=== PATIENT | female | born 1970 | race Caucasian/White ===

== ENCOUNTER 2018-01-25 09:20 | Emergency (ER) | payer OTHER ==
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
[2018-01-25] MEDS ORDERED: Sodium Chloride 0.9% 1000 ML 1,000 ML IV STA (10:20)
[2018-01-25] MEDS ORDERED: Phenergan 25 MG INJ IV ONE (10:20)
[2018-01-25] MEDS ORDERED: MORPHINE SULFATE 4 MG INJ IV ONE (10:20)
[2018-01-25] MEDS ORDERED: MORPHINE SULFATE 4 MG INJ ONE (10:42)
[2018-01-25] MEDS ORDERED: Sodium Chloride 0.9% 1000 ML 1,000 ML ONE (10:42)
[2018-01-25] MEDS ORDERED: Phenergan 25 MG INJ ONE (10:42)
[2018-01-25 10:50] LABS: BASOPHIL % 0.3 % (0.0-0.4); Basophil (Absolute #) 0.03 (0-0.4); Eosinophil % 1.8 % (0.00-5.0); Eosinophil (Absolute #) 0.16 (0-0.5); Granulocyte Absolute (ANC) 4.77 (1.4-6.9); Granulocytes % 53.1 % (36.0-66.0); Hematocrit 38.5 % (35-47); Hemoglobin 13.4 gm/dl (12.0-16.0); Lymphocyte (Absolute #) 3.39 (1.0-4.6); Lymphocytes % 37.8 % (24.0-44.0); Mean Cell Volume 95.1 fl (78-100); Mean Corpuscular Hgb Concent. 34.8 g/dl (32-36); Mean Platelet Volume 10.8 fl (6-9.5); Monocyte (Absolute #) 0.63 (0.0-1.3); Platelet Count 270 K/mm3 (150-450); Red Blood Count 4.05 M/mm3 (4.1-5.4); Red Cell Distribution Width 12.2 % (11.5-14.0)
[2018-01-25 11:08] LABS: ALBUMIN 4.6 g/dL (3.5-5.0); ALKALINE PHOSPHATASE 75 U/L (38-126); AMYLASE 99 U/L (30-110); ANION GAP 15.2 MEQ/L (5-15); BLOOD UREA NITROGEN 17 mg/dL (7-17); CHLORIDE 107 mmol/L (98-107); Calcium 10.1 mg/dL (8.4-10.2); Carbon Dioxide 23 mmol/L (22-30); Creatinine 1 0.62 mg/dL (0.52-1.04); Glucose 90 mg/dL (74-106); LIPASE 136 U/L (23-300); Potassium 4.2 mmol/L (3.5-5.1); SGOT/AST 27 U/L (14-36); SGPT/ALT 15 U/L (0-35); SODIUM 141 mmol/L (137-145); Total Protein 7.7 g/dL (6.3-8.2)
[2018-01-25 11:11] LABS: Amphetamine,Urine NEGATIVE (NEGATIVE); Barbiturate,Urine NEGATIVE (NEGATIVE); Benzodiazepine,Urine POSITIVE (NEGATIVE); Cocaine,Urine NEGATIVE (NEGATIVE); Methadone,Urine NEGATIVE (NEGATIVE); Opiate,Urine NEGATIVE (NEGATIVE); PCP,Urine NEGATIVE (NEGATIVE); THC,Urine NEGATIVE (NEGATIVE)
[2018-01-25 11:22] LABS: TROPONIN < 0.012 ng/mL (0.000-0.034)
[2018-01-25 11:26] LABS: Appearance CLEAR (CLEAR); Bacteria RARE /HPF (NEGATIVE); Bilirubin NEGATIVE (NEGATIVE); Blood 50 Ery/ul (0-5); Glucose NEGATIVE (NEGATIVE); Ketones NEGATIVE (NEGATIVE); Leukocyte Esterase NEGATIVE (NEGATIVE); Nitrite NEGATIVE (NEGATIVE); Protein,Urine Dip NEGATIVE (Negative); Specific Gravity 1.005 (1.005-1.025); Urobilinogen NORMAL mg/dL (0-1)
--- NOTE | 2018-01-25 12:11 | XRAY ---
Indication: Left abdominal pain. Comparison: Chest exam August 29, 2008. 2 views of the abdomen nonacute and nonobstructed with splenic calcified granuloma and pelvic phleboliths. Remaining solid organs unremarkable. Osseous structures intact with minimal degenerative changes and minimal dextroscoliosis centered at T12. Single frontal chest again demonstrates normal heart and lungs with incidental calcified granulomas. New finding old left 5th rib fracture. Impression: Negative abdomen with chronic findings. Stable nonacute one view chest with chronic findings.
[2018-01-25 12:17] VITALS: BP 115/74; PULSE 78
--- NOTE | 2018-01-25 12:21 | XRAY ---
Indication: Abdominal pain. Blood in stool. Multiple contiguous axial images obtained through the abdomen and pelvis without contrast as ordered. Comparison: None Lung bases are clear. Heart is not enlarged. Left infrahilar calcified granulomas. Noncontrasted stomach and bowel loops appear nonobstructed. Small medication/pill in the ascending colon. Appendix not seen. Calcified splenic granulomas and previous hysterectomy. No free fluid/air. Remaining liver, gallbladder, pancreas, adrenal glands, kidneys, ureters, bladder, and aorta appear unremarkable for noncontrast exam. Osseous structures intact with multilevel thoracolumbar Schmorl nodes, largest L3. Impression: 1. Evidence for old granulomatous disease. 2. Remaining CT abdomen/pelvis without contrast exam is negative. CT DI 23.68
[2018-01-25 12:22] VITALS: O2SAT 99
[2018-01-25] MEDS ORDERED: TORAdol 30 mg Injection ONE (13:17)
== END 2018-01-25 13:10 | disposition home or self-care (01) ==
LOC: ED 09:20
DX: K59.00 Constipation, unspecified (principal); R10.9 Unspecified abdominal pain; R11.2 Nausea with vomiting, unspecified; R19.7 Diarrhea, unspecified; Z79.899 Other long term (current) drug therapy; I10 Essential (primary) hypertension; J44.9 Chronic obstructive pulmonary disease, unspecified
CPT/HCPCS: 36000; 36415; 74022; 74176; 80053; 80307; 81000; 82150; 83605; 83690; 84484; 85025; 87040; 96360; 96374; 96375; 99284; J1885; J2270; J2550

== ENCOUNTER 2018-08-15 10:40 | Emergency (ER) | payer OTHER ==
[2018-08-15 10:58] VITALS: O2SAT 100
[2018-08-15] MEDS ORDERED: Zofran 4 MG/2 ML VIAL IV ONE (11:06)
[2018-08-15] MEDS ORDERED: Sodium Chloride 0.9% 1000 ML 1,000 ML IV STA (11:06)
[2018-08-15] MEDS ORDERED: BENADRYL 50 MG/ML IV ONE (11:06)
--- NOTE | 2018-08-15 11:12 | ERPHSYRPT ---
- History of Present Illness Time Seen by Provider: 08/15/18 11:00 Historian: patient Exam Limitations: clinical condition Patient Subjective Stated Complaint: Pain in left flank that radiates to the front abdomen and low back Triage Nursing Assessment: Pt c/o of pain in left flank that radiates to lower back and around front of the abdomen, stated that it began a week ago but got severe yesterday, BP 152/112, denies any trouble with bowels, pulses normal, bowel sounds heard, trouble urinating, appears to be very uncomfortable Physician History: PATIENT WITH A HISTORY OF COPD, COLITIS, DEPRESSION, COMPLAINS OF LEFT FLANK PAIN X 1 WEEK, RADIATES TO LEFT LOWER ABDOMEN. PAIN IS CHRONIC, PERSISTENT. DENIES NAUSEA, EMESIS, URINARY SYMPTOMS. Timing/Duration: week(s) Activities at Onset: none Quality: sharpness Abdominal Pain Onset Location: RLQ, LLQ, flank Pain Radiation: no radiation Severity of Pain-Max: severe Severity of Pain-Current: severe Modifying Factors: Improves With: nothing Associated Symptoms: denies symptoms Previous symptoms: other (HISTORY OF COLITIS) Allergies/Adverse Reactions: ketorolac [From Toradol] Allergy (Mild, Verified 08/15/18 10:58) tramadol Allergy (Mild, Verified 08/15/18 10:58) erythromycin base Allergy (Verified 08/15/18 10:59) Home Medications: Albuterol Sulfate [Ventolin Hfa] 90 mcg IN UD PRN 01/25/18 [History] Alprazolam 1 mg [Xanax 1 mg] 1 mg PO TID 01/25/18 [History] Amitriptyline HCl 10 mg [Elavil 10 mg] 100 mg PO HS 01/25/18 [History] Cyclobenzaprine HCl [Flexeril] 5 mg PO UD PRN 01/25/18 [History] Escitalopram Oxalate 10 mg [Lexapro 10 MG] 10 mg PO DAILY 01/25/18 [History] Furosemide 20 mg PO DAILY 01/25/18 [History] Metoprolol Tartrate 25 mg [Lopressor 25MG Tab] 100 mg PO DAILY 01/25/18 [ History] Potassium Chloride 10 meq PO DAILY 01/25/18 [History] Hx Tetanus, Diphtheria Vaccination/Date Given: No Hx Influenza Vaccination/Date Given: Yes Hx Pneumococcal Vaccination/Date Given: No - Review of Systems Constitutional: No Fever, No Chills Eyes: No Symptoms Ears, Nose, & Throat: No Symptoms Respiratory: No Symptoms, No Cough, No Dyspnea Cardiac: No Symptoms, No Chest Pain, No Edema, No Syncope Abdominal/Gastrointestinal: Abdominal Pain, Appetite Changes, No Nausea, No Vomiting, No Diarrhea Genitourinary Symptoms: No Dysuria Musculoskeletal: No Symptoms, No Back Pain, No Neck Pain Skin: No Rash Neurological: No Dizziness, No Focal Weakness, No Sensory Changes Psychological: No Symptoms Endocrine: No Symptoms All Other Systems: Reviewed and Negative - Past Medical History Pertinent Past Medical History: Yes Cardiac History: Hypertension Respiratory History: Asthma, COPD GI Medical History: Colitis Psycho-Social History: Anxiety, Depression - Past Surgical History Past Surgical History: Yes Female Surgical History: Hysterectomy - Social History Smoking Status: Current some day smoker How long have you smoked: 38 years Exposure to second hand smoke: No Drug Use: marijuana Patient Lives Alone: No - Female History Hx Now: No (hysterectomy) - Nursing Vital Signs Nursing Vital Signs: Initial Vital Signs Temperature 98.2 F 08/15/18 10:45 Pulse Rate 82 08/15/18 10:45 Blood Pressure 152/112 08/15/18 10:45 O2 Sat by Pulse Oximetry 100 08/15/18 10:45 Pain Scale Pain Intensity 10 - Physical Exam General Appearance: mild distress Eye Exam: PERRL/EOMI Ears, Nose, Throat Exam: normal ENT inspection Neck Exam: normal inspection Respiratory Exam: normal breath sounds Cardiovascular Exam: regular rate/rhythm Gastrointestinal/Abdomen Exam: soft, normal bowel sounds, tenderness (LLQ TENDERNESS, LEFT FLANK TENDERNESS) Back Exam: normal inspection, normal range of motion, CVA tenderness Extremity Exam: normal inspection Neurologic Exam: alert, oriented x 3 SpO2 Interpretation: normal SpO2: 100 Oxygen Delivery: Room Air - CT Exams Abdomen/Pelvis CT Interpretation: Discussed w/radiologist (INCIDENTAL BILATERAL RENAL CYSTS NOT SEEN OF PREVIOUS NONCONTRAST EXAM OTHERWISE NEGATIVE) Ordered Tests: Active Orders 24 hr Category Date Time Status IV Insertion STAT Care 08/15/18 11:06 Active ABDOMEN AND PELVIS W CONTRAST [CT] Stat Exams 08/15/18 11:07 Completed AMYLASE Stat Lab 08/15/18 11:06 Completed BMP Stat Lab 08/15/18 11:06 Completed CBC W DIFF Stat Lab 08/15/18 11:06 Completed CULTURE,URINE Stat Lab 08/15/18 11:25 Received LIPASE Stat Lab 08/15/18 11:06 Completed UA W/RFX UR CULTURE Stat Lab 08/15/18 11:25 Completed Urine Triage Profile Stat Lab 08/15/18 Completed Medication Summary Discontinued Medications Generic Name Dose Route Start Last Admin Trade Name Bobo PRN Reason Stop Dose Admin Diphenhydramine HCl 25 mg 08/15/18 11:06 08/15/18 11:45 Benadryl 50 Mg/Ml IV 08/15/18 11:07 25 mg STAT ONE Administration Diphenhydramine HCl Confirm 08/15/18 11:39 Benadryl 50 Mg/Ml Administered 08/15/18 11:40 Dose 50 mg .ROUTE .STK-MED ONE Hydromorphone HCl 1 mg 08/15/18 11:30 08/15/18 11:46 Hydromorphone 1 Mg/Ml Ampule IV 08/15/18 11:31 1 mg STAT ONE Administration Hydromorphone HCl Confirm 08/15/18 11:39 Hydromorphone 1 Mg/Ml Ampule Administered 08/15/18 11:40 Dose 1 mg .ROUTE .STK-MED ONE Sodium Chloride 1,000 mls @ 999 mls/hr 08/15/18 11:06 08/15/18 12:56 Sodium Chloride 0.9% 1000 Ml IV 08/15/18 12:06 Infused .Q1H1M STA Infusion Sodium Chloride Confirm 08/15/18 11:39 Sodium Chloride 0.9% 1000 Ml Administered 08/15/18 11:40 Dose 1,000 mls @ ud .ROUTE .STK-MED ONE Ondansetron HCl 4 mg 08/15/18 11:06 08/15/18 11:46 Zofran 4 Mg/2 Ml Vial IV 08/15/18 11:07 4 mg STAT ONE Administration Ondansetron HCl Confirm 08/15/18 11:39 Zofran 4 Mg/2 Ml Vial Administered 08/15/18 11:40 Dose 4 mg .ROUTE .STK-MED ONE Lab/Rad Data: Laboratory Result Diagrams 08/15/18 11:06 08/15/18 11:06 Laboratory Results 08/15/18 08/15/18 08/15/18 Range/Units Unknown 11:25 11:06 WBC (4.0-10.5) K/mm3 RBC (4.1-5.4) M/mm3 Hgb (12.0-16.0) gm/dl Hct (35-47) % MCV (78-100) fl MCH (26-32) pg MCHC (32-36) g/dl RDW (11.5-14.0) % Plt Count (150-450) K/mm3 MPV (6-9.5) fl Gran % (36.0-66.0) % Eos # (Auto) (0-0.5) Absolute Lymphs (auto) (1.0-4.6) Absolute Monos (auto) (0.0-1.3) Lymphocytes % (24.0-44.0) % Monocytes % (0.0-12.0) % Eosinophils % (0.00-5.0) % Basophils % (0.0-0.4) % Absolute Granulocytes (1.4-6.9) Basophils # (0-0.4) Sodium 140 (137-145) mmol/L Potassium 4.0 (3.5-5.1) mmol/L Chloride 109 H (98-107) mmol/L Carbon Dioxide 25 (22-30) mmol/L Anion Gap 10.1 (5-15) MEQ/L BUN 18 H (7-17) mg/dL Creatinine 0.89 (0.52-1.04) mg/dL Estimated GFR > 60.0 ML/MIN Glucose 114 H (74-106) mg/dL Calcium 9.0 (8.4-10.2) mg/dL Amylase 88 (30-110) U/L Lipase 70 (23-300) U/L Urine Color YELLOW (YELLOW) Urine Appearance SLIGHTLY CLOUDY (CLEAR) Urine pH 5.0 (5-6) Ur Specific [place] 1.017 (1.005-1.025) Urine Protein 30 (Negative) Urine Ketones NEGATIVE (NEGATIVE) Urine Blood MODERATE (0-5) Rodney/ul Urine Nitrite NEGATIVE (NEGATIVE) Urine Bilirubin NEGATIVE (NEGATIVE) Urine Urobilinogen NEGATIVE (0-1) mg/dL Ur Leukocyte Esterase NEGATIVE (NEGATIVE) Urine WBC (Auto) 3-5 (0-5) /HPF Urine RBC (Auto) >101 (0-2) /HPF U Epithel Cells (Auto) RARE (FEW) /HPF Urine Bacteria (Auto) RARE (NEGATIVE) /HPF Urine Mucus (Auto) SLIGHT (NEGATIVE) /HPF Urine Culture Reflexed YES (NO) Urine Glucose NEGATIVE (NEGATIVE) mg/dL Urine Opiates Level NEGATIVE (NEGATIVE) Ur Methadone NEGATIVE (NEGATIVE) Urine Barbiturates NEGATIVE (NEGATIVE) Ur Phencyclidine (PCP) NEGATIVE (NEGATIVE) Urine Amphetamine NEGATIVE (NEGATIVE) U Benzodiazepine Level POSITIVE (NEGATIVE) Urine Cocaine NEGATIVE (NEGATIVE) Urine Marijuana (THC) POSITIVE (NEGATIVE) 08/15/18 Range/Units 11:06 WBC 9.0 (4.0-10.5) K/mm3 RBC 3.22 L (4.1-5.4) M/mm3 Hgb 10.6 L (12.0-16.0) gm/dl Hct 31.3 L (35-47) % MCV 97.2 (78-100) fl MCH 32.9 H (26-32) pg MCHC 33.9 (32-36) g/dl RDW 13.2 (11.5-14.0) % Plt Count 278 (150-450) K/mm3 MPV 10.5 H (6-9.5) fl Gran % 64.2 (36.0-66.0) % Eos # (Auto) 0.26 (0-0.5) Absolute Lymphs (auto) 2.46 (1.0-4.6) Absolute Monos (auto) 0.48 (0.0-1.3) Lymphocytes % 27.2 (24.0-44.0) % Monocytes % 5.3 (0.0-12.0) % Eosinophils % 2.9 (0.00-5.0) % Basophils % 0.4 (0.0-0.4) % Absolute Granulocytes 5.80 (1.4-6.9) Basophils # 0.04 (0-0.4) Sodium (137-145) mmol/L Potassium (3.5-5.1) mmol/L Chloride (98-107) mmol/L Carbon Dioxide (22-30) mmol/L Anion Gap (5-15) MEQ/L BUN (7-17) mg/dL Creatinine (0.52-1.04) mg/dL Estimated GFR ML/MIN Glucose (74-106) mg/dL Calcium (8.4-10.2) mg/dL Amylase (30-110) U/L Lipase (23-300) U/L Urine Color (YELLOW) Urine Appearance (CLEAR) Urine pH (5-6) Ur Specific [place] (1.005-1.025) Urine Protein (Negative) Urine Ketones (NEGATIVE) Urine Blood (0-5) Rodney/ul Urine Nitrite (NEGATIVE) Urine Bilirubin (NEGATIVE) Urine Urobilinogen (0-1) mg/dL Ur Leukocyte Esterase (NEGATIVE) Urine WBC (Auto) (0-5) /HPF Urine RBC (Auto) (0-2) /HPF U Epithel Cells (Auto) (FEW) /HPF Urine Bacteria (Auto) (NEGATIVE) /HPF Urine Mucus (Auto) (NEGATIVE) /HPF Urine Culture Reflexed (NO) Urine Glucose (NEGATIVE) mg/dL Urine Opiates Level (NEGATIVE) Ur Methadone (NEGATIVE) Urine Barbiturates (NEGATIVE) Ur Phencyclidine (PCP) (NEGATIVE) Urine Amphetamine (NEGATIVE) U Benzodiazepine Level (NEGATIVE) Urine Cocaine (NEGATIVE) Urine Marijuana (THC) (NEGATIVE) - Progress Progress Note: 08/15/18 11:12 IV NORMAL SALINE 1 LITER/HR, BENADRYL 25MG, ZOFRAN 4MG, DILAUDID 1MG IV Counseled pt/family regarding: lab results, diagnosis, need for follow-up, rad results - Departure Time of Disposition: 13:18 Departure Disposition: Home Clinical Impression: RENAL COLIC, BILATERAL RENAL CYSTS Condition: Stable Critical Care Time: No Referrals: ELENA FRIAS, CARE AIDE [Primary Care Provider] - Additional Instructions: STRAIN ALL URINE WITH STRAINER. ZOFRAN 4MG EVERY 6 HOURS NEEDED FOR NAUSEA. PERCOGESIC EVERY 4-6 HOURS FOR PAIN NEEDED. CONSULT YOUR PRIMARY CARE PROVIDER FOR FOLLOWUP AND REFERRAL FOR COLONOSCOPY. Prescriptions: Ondansetron ODT 4 MG [Zofran Odt 4 mg] 4 mg PO Q6H PRN PRN #10 tab.rapdis PRN Reason: Nausea Acetaminophen/Diphenhydramine [Percogesic Extra Str Caplet] 1 each PO Q4-6HPRN PRN #20 tablet PRN Reason: Pain
[2018-08-15] MEDS ORDERED: Hydromorphone 1 mg/ml Ampule IV ONE (11:30)
[2018-08-15] MEDS ORDERED: Hydromorphone 1 mg/ml Ampule ONE (11:39)
[2018-08-15] MEDS ORDERED: Zofran 4 MG/2 ML VIAL ONE (11:39)
[2018-08-15] MEDS ORDERED: Sodium Chloride 0.9% 1000 ML 1,000 ML ONE (11:39)
[2018-08-15] MEDS ORDERED: BENADRYL 50 MG/ML ONE (11:39)
[2018-08-15 11:50] LABS: BASOPHIL % 0.4 % (0.0-0.4); Basophil (Absolute #) 0.04 (0-0.4); Eosinophil % 2.9 % (0.00-5.0); Eosinophil (Absolute #) 0.26 (0-0.5); Granulocytes % 64.2 % (36.0-66.0); Hematocrit 31.3 % (35-47); Hemoglobin 10.6 gm/dl (12.0-16.0); Lymphocyte (Absolute #) 2.46 (1.0-4.6); Lymphocytes % 27.2 % (24.0-44.0); Mean Cell Volume 97.2 fl (78-100); Mean Corpuscular Hemoglobin 32.9 pg (26-32); Mean Corpuscular Hgb Concent. 33.9 g/dl (32-36); Mean Platelet Volume 10.5 fl (6-9.5); Monocyte (Absolute #) 0.48 (0.0-1.3); Monocytes % 5.3 % (0.0-12.0); Platelet Count 278 K/mm3 (150-450); Red Blood Count 3.22 M/mm3 (4.1-5.4); Red Cell Distribution Width 13.2 % (11.5-14.0)
[2018-08-15 12:05] LABS: Appearance SLIGHTLY CLOUDY (CLEAR); Bilirubin NEGATIVE (NEGATIVE); Blood MODERATE Ery/ul (0-5); Glucose NEGATIVE (NEGATIVE); Ketones NEGATIVE (NEGATIVE); Leukocyte Esterase NEGATIVE (NEGATIVE); Nitrite NEGATIVE (NEGATIVE); Protein,Urine Dip 30 (Negative); Specific Gravity 1.017 (1.005-1.025); Urobilinogen NEGATIVE mg/dL (0-1)
[2018-08-15 12:10] LABS: AMYLASE 88 U/L (30-110); ANION GAP 10.1 MEQ/L (5-15); BLOOD UREA NITROGEN 18 mg/dL (7-17); CHLORIDE 109 mmol/L (98-107); Carbon Dioxide 25 mmol/L (22-30); Creatinine 1 0.89 mg/dL (0.52-1.04); Glucose 114 mg/dL (74-106); LIPASE 70 U/L (23-300); SODIUM 140 mmol/L (137-145)
[2018-08-15 12:11] LABS: Amphetamine,Urine NEGATIVE (NEGATIVE); Barbiturate,Urine NEGATIVE (NEGATIVE); Benzodiazepine,Urine POSITIVE (NEGATIVE); Cocaine,Urine NEGATIVE (NEGATIVE); Methadone,Urine NEGATIVE (NEGATIVE); Opiate,Urine NEGATIVE (NEGATIVE); THC,Urine POSITIVE (NEGATIVE)
[2018-08-15 12:26] LABS: PCP,Urine NEGATIVE (NEGATIVE)
--- NOTE | 2018-08-15 12:44 | XRAY ---
Indication: Abdomen/pelvic pain. Bloating, nausea, and diarrhea. Difficulty urinating. History colitis and diverticulitis. Multiple contiguous axial images obtained through the abdomen and pelvis using 80 cc Isovue 370 contrast only. Comparison: January 25, 2018. Lung bases demonstrate stable left base calcified granuloma. No infiltrate or effusion. Heart is not enlarged. Noncontrasted stomach and bowel loops appear nonobstructed. Appendix not seen. There is now mild diffuse scattered colonic fecal debris. Stable calcified splenic granulomas and hysterectomy. There are a few bilateral renal cysts, largest in the left lower pole measuring 1.5 cm not seen on previous noncontrasted exam. No free fluid/air. Remaining liver, gallbladder, pancreas, spleen, adrenal glands, kidneys, ureters, bladder, and aorta appear unremarkable. No pathologic retroperitoneal lymphadenopathy. Osseous structures intact again with multilevel thoracolumbar Schmorl nodes. No ventral or inguinal hernias. Impression: 1. New fecal stasis without obstruction. 2. Incidental bilateral renal cysts not seen on previous noncontrast exam. 3. Again evidence for old granulomatous disease. 4. Remaining CT abdomen/pelvis with contrast exam is negative. CT DI 27.96
[2018-08-15 13:33] VITALS: BP 141/92; PULSE 88
== END 2018-08-15 13:33 | disposition home or self-care (01) ==
LOC: ED 10:40
DX: N23 Unspecified renal colic (principal); N28.1 Cyst of kidney, acquired; Z79.899 Other long term (current) drug therapy
CPT/HCPCS: 36000; 36415; 74177; 80048; 80307; 81001; 82150; 83690; 85025; 87086; 96360; 96374; 96375; 99284; J1170; J1200; J2405

== ENCOUNTER 2018-08-16 11:32 | Emergency (ER) | payer OTHER ==
--- NOTE | 2018-08-16 11:58 | ERPHSYRPT ---
- History of Present Illness Time Seen by Provider: 08/16/18 11:51 Historian: patient Patient Subjective Stated Complaint: to er c/o pain to left lower quad pain going across abd. 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 pt seen in er yesterday and dx with possible kidney stone and renal colic Triage Nursing Assessment: to er c/o pain to lower abd x 24 hour pt states pain worse over night pt arrives bent over in pain pt pale/w/d resp easy a@ox3 bs+x4 Physician History: 48 y/o white female presents with left upper quadrant abd and left flank pain. pt seen in this ED yesterday and underwent a thorough evaluation including a ct abd/pelvis. results of ct scan revealed no acute process, no renal or ureteral stones. pt can take ibuprofen Activities at Onset: none Abdominal Pain Onset Location: LUQ, flank (left) Pain Radiation: no radiation Severity of Pain-Max: moderate Severity of Pain-Current: mild Modifying Factors: Improves With: nothing Associated Symptoms: back (left), No chest pain, No diaphoresis, No diarrhea, No headache, No loss of appetite, No nausea, No vomiting, No weakness Previous symptoms: same symptoms as today, recently seen, recently treated Allergies/Adverse Reactions: ketorolac [From Toradol] Allergy (Mild, Verified 08/15/18 10:58) tramadol Allergy (Mild, Verified 08/15/18 10:58) erythromycin base Allergy (Verified 08/15/18 10:59) Home Medications: Albuterol Sulfate [Ventolin Hfa] 90 mcg IN UD PRN 01/25/18 [History] Alprazolam 1 mg [Xanax 1 mg] 1 mg PO TID 01/25/18 [History] Amitriptyline HCl 10 mg [Elavil 10 mg] 100 mg PO HS 01/25/18 [History] Cyclobenzaprine HCl [Flexeril] 5 mg PO UD PRN 01/25/18 [History] Escitalopram Oxalate 10 mg [Lexapro 10 MG] 10 mg PO DAILY 01/25/18 [History] Furosemide 20 mg PO DAILY 01/25/18 [History] Metoprolol Tartrate 25 mg [Lopressor 25MG Tab] 100 mg PO DAILY 01/25/18 [ History] Potassium Chloride 10 meq PO DAILY 01/25/18 [History] Hx Tetanus, Diphtheria Vaccination/Date Given: No Hx Influenza Vaccination/Date Given: Yes Hx Pneumococcal Vaccination/Date Given: No - Review of Systems Constitutional: No Symptoms, No Fever Eyes: No Symptoms Ears, Nose, & Throat: No Symptoms Respiratory: No Symptoms Cardiac: No Symptoms Abdominal/Gastrointestinal: Abdominal Pain, No Nausea, No Vomiting, No Diarrhea Genitourinary Symptoms: No Symptoms, No Dysuria, No Frequency, No Hematuria Musculoskeletal: Back Pain (left) Skin: No Symptoms Neurological: No Symptoms Psychological: No Symptoms Endocrine: No Symptoms Hematologic/Lymphatic: No Symptoms Immunological/Allergic: No Symptoms All Other Systems: Reviewed and Negative - Past Medical History Pertinent Past Medical History: Yes Cardiac History: Hypertension Respiratory History: Asthma, COPD GI Medical History: Colitis Psycho-Social History: Anxiety, Depression - Past Surgical History Past Surgical History: Yes Female Surgical History: Hysterectomy - Social History Smoking Status: Current some day smoker How long have you smoked: 38 years Exposure to second hand smoke: No Drug Use: marijuana Patient Lives Alone: No - Female History Hx Now: No - Nursing Vital Signs Nursing Vital Signs: Initial Vital Signs Temperature 97.6 F 08/16/18 11:36 Pulse Rate 83 08/16/18 11:36 Respiratory Rate 16 08/16/18 11:36 Blood Pressure 177/103 08/16/18 11:36 O2 Sat by Pulse Oximetry 100 08/16/18 11:36 Pain Scale Pain Intensity 10 - Physical Exam General Appearance: mild distress, alert, anxiety Eye Exam: PERRL/EOMI, eyes nml inspection Ears, Nose, Throat Exam: normal ENT inspection, pharynx normal, moist mucous membranes Neck Exam: normal inspection, non-tender, supple, full range of motion Respiratory Exam: normal breath sounds, lungs clear, airway intact, No chest tenderness, No respiratory distress, No accessory muscle use, No rhonchi, No wheezing, No stridor Cardiovascular Exam: regular rate/rhythm, normal heart sounds, normal peripheral pulses Gastrointestinal/Abdomen Exam: soft, normal bowel sounds, tenderness (left upper quadrant), No guarding, No rebound Pelvic Exam: not done Rectal Exam: not done Back Exam: normal inspection, normal range of motion, CVA tenderness (left), No vertebral tenderness Extremity Exam: normal inspection, normal range of motion, pelvis stable Neurologic Exam: alert, oriented x 3, cooperative, pottery striper II-XII nml as tested Skin Exam: normal color, warm, dry Lymphatic Exam: No adenopathy SpO2 Interpretation: normal SpO2: 100 Oxygen Delivery: Room Air - Course Nursing assessment & vital signs reviewed: Yes Ordered Tests: Active Orders 24 hr Category Date Time Status AMYLASE Stat Lab 08/16/18 12:35 Completed CBC W DIFF Stat Lab 08/16/18 12:35 Completed CMP Stat Lab 08/16/18 12:35 Completed CULTURE,URINE Stat Lab 08/16/18 12:40 Received LIPASE Stat Lab 08/16/18 12:35 Completed Lactic Acid Stat Lab 08/16/18 12:39 Completed UA W/RFX UR CULTURE Stat Lab 08/16/18 12:40 Completed Medication Summary Discontinued Medications Generic Name Dose Route Start Last Admin Trade Name Freq PRN Reason Stop Dose Admin Hydrocodone Bitart/Acetaminophen 1 tab 08/16/18 12:43 08/16/18 12:45 Howard 5/325 Mg PO 08/16/18 12:44 1 tab STAT ONE Administration Hydrocodone Bitart/Acetaminophen Confirm 08/16/18 12:43 Howard 5/325 Mg Administered 08/16/18 12:44 Dose 1 tab .ROUTE .STK-MED ONE Lab/Rad Data: Laboratory Result Diagrams 08/16/18 12:35 08/16/18 12:35 Laboratory Results 08/16/18 08/16/18 08/16/18 Range/Units 12:40 12:39 12:35 WBC (4.0-10.5) K/mm3 RBC (4.1-5.4) M/mm3 Hgb (12.0-16.0) gm/dl Hct (35-47) % MCV (78-100) fl MCH (26-32) pg MCHC (32-36) g/dl RDW (11.5-14.0) % Plt Count (150-450) K/mm3 MPV (6-9.5) fl Gran % (36.0-66.0) % Eos # (Auto) (0-0.5) Absolute Lymphs (auto) (1.0-4.6) Absolute Monos (auto) (0.0-1.3) Lymphocytes % (24.0-44.0) % Monocytes % (0.0-12.0) % Eosinophils % (0.00-5.0) % Basophils % (0.0-0.4) % Absolute Granulocytes (1.4-6.9) Basophils # (0-0.4) Sodium 140 (137-145) mmol/L Potassium 4.1 (3.5-5.1) mmol/L Chloride 109 H (98-107) mmol/L Carbon Dioxide 23 (22-30) mmol/L Anion Gap 11.4 (5-15) MEQ/L BUN 14 (7-17) mg/dL Creatinine 0.79 (0.52-1.04) mg/dL Estimated GFR > 60.0 ML/MIN Glucose 91 (74-106) mg/dL Lactic Acid 1.2 (0.4-2.0) Calcium 9.4 (8.4-10.2) mg/dL Total Bilirubin 0.20 (0.2-1.3) mg/dL AST 16 (14-36) U/L ALT 13 (0-35) U/L Alkaline Phosphatase 65 (38-126) U/L Serum Total Protein 6.5 (6.3-8.2) g/dL Albumin 3.8 (3.5-5.0) g/dL Amylase 118 H (30-110) U/L Lipase 197 (23-300) U/L Urine Color YELLOW (YELLOW) Urine Appearance CLEAR (CLEAR) Urine pH 6.0 (5-6) Ur Specific [place] 17 (1.005-1.025) Urine Protein NEGATIVE (Negative) Urine Ketones NEGATIVE (NEGATIVE) Urine Blood MODERATE (0-5) Rodney/ul Urine Nitrite NEGATIVE (NEGATIVE) Urine Bilirubin NEGATIVE (NEGATIVE) Urine Urobilinogen NORMAL (0-1) mg/dL Ur Leukocyte Esterase NEGATIVE (NEGATIVE) Urine WBC (Auto) 3-5 (0-5) /HPF Urine RBC (Auto) >101 (0-2) /HPF U Epithel Cells (Auto) NONE (FEW) /HPF Urine Bacteria (Auto) RARE (NEGATIVE) /HPF Urine Mucus (Auto) SLIGHT (NEGATIVE) /HPF Urine Culture Reflexed YES (NO) Urine Glucose NEGATIVE (NEGATIVE) mg/dL 08/16/18 Range/Units 12:35 WBC 7.2 (4.0-10.5) K/mm3 RBC 3.33 L (4.1-5.4) M/mm3 Hgb 10.9 L (12.0-16.0) gm/dl Hct 32.3 L (35-47) % MCV 97.0 (78-100) fl MCH 32.7 H (26-32) pg MCHC 33.7 (32-36) g/dl RDW 13.2 (11.5-14.0) % Plt Count 298 (150-450) K/mm3 MPV 10.2 H (6-9.5) fl Gran % 53.3 (36.0-66.0) % Eos # (Auto) 0.19 (0-0.5) Absolute Lymphs (auto) 2.72 (1.0-4.6) Absolute Monos (auto) 0.40 (0.0-1.3) Lymphocytes % 37.6 (24.0-44.0) % Monocytes % 5.5 (0.0-12.0) % Eosinophils % 2.6 (0.00-5.0) % Basophils % 1.0 (0.0-0.4) % Absolute Granulocytes 3.86 (1.4-6.9) Basophils # 0.07 (0-0.4) Sodium (137-145) mmol/L Potassium (3.5-5.1) mmol/L Chloride (98-107) mmol/L Carbon Dioxide (22-30) mmol/L Anion Gap (5-15) MEQ/L BUN (7-17) mg/dL Creatinine (0.52-1.04) mg/dL Estimated GFR ML/MIN Glucose (74-106) mg/dL Lactic Acid (0.4-2.0) Calcium (8.4-10.2) mg/dL Total Bilirubin (0.2-1.3) mg/dL AST (14-36) U/L ALT (0-35) U/L Alkaline Phosphatase (38-126) U/L Serum Total Protein (6.3-8.2) g/dL Albumin (3.5-5.0) g/dL Amylase (30-110) U/L Lipase (23-300) U/L Urine Color (YELLOW) Urine Appearance (CLEAR) Urine pH (5-6) Ur Specific [place] (1.005-1.025) Urine Protein (Negative) Urine Ketones (NEGATIVE) Urine Blood (0-5) Rodney/ul Urine Nitrite (NEGATIVE) Urine Bilirubin (NEGATIVE) Urine Urobilinogen (0-1) mg/dL Ur Leukocyte Esterase (NEGATIVE) Urine WBC (Auto) (0-5) /HPF Urine RBC (Auto) (0-2) /HPF U Epithel Cells (Auto) (FEW) /HPF Urine Bacteria (Auto) (NEGATIVE) /HPF Urine Mucus (Auto) (NEGATIVE) /HPF Urine Culture Reflexed (NO) Urine Glucose (NEGATIVE) mg/dL - Progress Progress: improved, pain not gone completely Counseled pt/family regarding: lab results, diagnosis, need for follow-up - Departure Time of Disposition: 13:51 Departure Disposition: Home Clinical Impression: Left flank pain, Hematuria Condition: Stable Critical Care Time: No Referrals: ELENA FRIAS, HEAD HOST/HOSTESS [Primary Care Provider] - Additional Instructions: drink plenty of fluids. add ibuprofen for pain. follow up with urologist and primary doctor for further management Prescriptions: Hydrocodone/APAP 5/325 [Howard 5/325 mg] 1 each PO Q8H PRN PRN #6 tablet MDD 3 PRN Reason: Pain
[2018-08-16 12:43] LABS: Basophil (Absolute #) 0.07 (0-0.4); Eosinophil % 2.6 % (0.00-5.0); Eosinophil (Absolute #) 0.19 (0-0.5); Granulocyte Absolute (ANC) 3.86 (1.4-6.9); Granulocytes % 53.3 % (36.0-66.0); Hematocrit 32.3 % (35-47); Hemoglobin 10.9 gm/dl (12.0-16.0); Lymphocyte (Absolute #) 2.72 (1.0-4.6); Lymphocytes % 37.6 % (24.0-44.0); Mean Corpuscular Hemoglobin 32.7 pg (26-32); Mean Corpuscular Hgb Concent. 33.7 g/dl (32-36); Mean Platelet Volume 10.2 fl (6-9.5); Monocytes % 5.5 % (0.0-12.0); Platelet Count 298 K/mm3 (150-450); Red Blood Count 3.33 M/mm3 (4.1-5.4); Red Cell Distribution Width 13.2 % (11.5-14.0); White Blood Count 7.2 K/mm3 (4.0-10.5)
[2018-08-16] MEDS ORDERED: NORCO 5/325 MG PO ONE (12:43)
[2018-08-16] MEDS ORDERED: NORCO 5/325 MG ONE (12:43)
[2018-08-16 12:55] LABS: Appearance CLEAR (CLEAR); Specific Gravity 17 (1.005-1.025)
[2018-08-16 12:56] LABS: Bilirubin NEGATIVE (NEGATIVE); Blood MODERATE Ery/ul (0-5); Glucose NEGATIVE (NEGATIVE); Ketones NEGATIVE (NEGATIVE); Leukocyte Esterase NEGATIVE (NEGATIVE); Nitrite NEGATIVE (NEGATIVE); Protein,Urine Dip NEGATIVE (Negative); Urobilinogen NORMAL mg/dL (0-1)
[2018-08-16 13:17] LABS: ALBUMIN 3.8 g/dL (3.5-5.0); ALKALINE PHOSPHATASE 65 U/L (38-126); AMYLASE 118 U/L (30-110); ANION GAP 11.4 MEQ/L (5-15); BLOOD UREA NITROGEN 14 mg/dL (7-17); CHLORIDE 109 mmol/L (98-107); Calcium 9.4 mg/dL (8.4-10.2); Carbon Dioxide 23 mmol/L (22-30); Creatinine 1 0.79 mg/dL (0.52-1.04); Glucose 91 mg/dL (74-106); LIPASE 197 U/L (23-300); Potassium 4.1 mmol/L (3.5-5.1); SGOT/AST 16 U/L (14-36); SGPT/ALT 13 U/L (0-35); SODIUM 140 mmol/L (137-145); Total Protein 6.5 g/dL (6.3-8.2)
[2018-08-16 14:12] VITALS: BP 125/111; PULSE 77; O2SAT 97
== END 2018-08-16 14:12 | disposition home or self-care (01) ==
LOC: ED 11:32
DX: R10.12 Left upper quadrant pain (principal); R31.9 Hematuria, unspecified; M54.9 Dorsalgia, unspecified; Z79.899 Other long term (current) drug therapy
CPT/HCPCS: 36415; 80053; 81001; 82150; 83605; 83690; 85025; 87086; 99283; A9270-GY

== ENCOUNTER 2018-09-07 13:54 | Emergency (ER) | payer OTHER ==
--- NOTE | 2018-09-07 14:58 | ERPHSYRPT ---
- History of Present Illness Time Seen by Provider: 09/07/18 14:30 Source: family Exam Limitations: clinical condition Patient Subjective Stated Complaint: pt reports "i have pain all over my body, you don't understand, my feet are broken, my hands are broken, I had to run for my life, I want this place strapped and tapped." pt present with daughter who reports pt has just been released from custodial and she believes her mother is mentally unstable. daughter reports pt has extensive history of drug abuse. reports that she has been talking and not making any sense to those around her, her daughter fears she may be dangerous to others as she is becoming increasingly agitated. pt refuses to answer questions, pt states "read it and shut your mouth." pt is not cooperative with staff at this time. pt denies thoughts of harming herself. when asked about homicidal thoughts pt states " only if it were life or and i had to defend myself". Triage Nursing Assessment: pt is aox3, pt appears agitated, pt with rambling speech, pt is diaphoretic, pt resps easy and non labored, radial pulses are strong and equal bilat, pt afebrile, no edema noted. Physician History: DAUGHTER BROUGHT PATIENT WITH A HISTORY OF SCHIZOPHRENIA, TO EMERGENCY ROOM FOR EVALUATION OF AN ACUTE PSYCHIATRIC DISORDER. DAUGHTER STATES PAST FEW DAYS, PATIENT HAS BEEN MORE AGITATED THAN NORMAL, THREATENING OTHERS, HAS RAMBLING SPEECH. UNSURE IF PATIENT IS COMPLIANT WITH HER MEDICATIONS. PATIENT CURSING IN ROOM, REFUSING TO ANSWER QUESTIONS, THREATENING BODY HARM IF I DO NOT LEAVE THE PATIENT'S ROOM. Timing/Duration: day(s) Severity of Symptoms-Max: severe Severity of Symptoms-Current: severe Context related to: daughter Suicidal thoughts: other (NO COMPLAINS OF SUICIDAL THOUGHTS) Associated Symptoms: angry, agitated, depressed, hostile, impaired concentration Previous symptoms: same symptoms as today Allergies/Adverse Reactions: ketorolac [From Toradol] Allergy (Mild, Verified 08/15/18 10:58) tramadol Allergy (Mild, Verified 08/15/18 10:58) erythromycin base Allergy (Verified 08/15/18 10:59) Home Medications: Albuterol Sulfate [Ventolin Hfa] 90 mcg IN UD PRN 01/25/18 [History] Alprazolam 1 mg [Xanax 1 mg] 1 mg PO TID 01/25/18 [History] Amitriptyline HCl 10 mg [Elavil 10 mg] 100 mg PO HS 01/25/18 [History] Cyclobenzaprine HCl [Flexeril] 5 mg PO UD PRN 01/25/18 [History] Escitalopram Oxalate 10 mg [Lexapro 10 MG] 10 mg PO DAILY 01/25/18 [History] Furosemide 20 mg PO DAILY 01/25/18 [History] Metoprolol Tartrate 25 mg [Lopressor 25MG Tab] 100 mg PO DAILY 01/25/18 [ History] Potassium Chloride 10 meq PO DAILY 01/25/18 [History] Hx Tetanus, Diphtheria Vaccination/Date Given: No Hx Influenza Vaccination/Date Given: No Hx Pneumococcal Vaccination/Date Given: No Immunizations Up to Date: Yes - Past Medical History Pertinent Past Medical History: Yes Cardiac History: Hypertension Respiratory History: Asthma, COPD GI Medical History: Colitis Psycho-Social History: Anxiety, Depression - Past Surgical History Past Surgical History: Yes Female Surgical History: Hysterectomy - Social History Smoking Status: Unknown if ever smoked How long have you smoked: 38 years Exposure to second hand smoke: No Drug Use: marijuana Patient Lives Alone: No - Female History Hx Now: No - Review of Systems Constitutional: No Fever, No Chills Eyes: No Symptoms Ears, Nose, & Throat: No Symptoms Respiratory: No Cough, No Dyspnea Cardiac: No Chest Pain, No Edema, No Syncope Abdominal/Gastrointestinal: No Abdominal Pain, No Nausea, No Vomiting, No Diarrhea Genitourinary Symptoms: No Dysuria Musculoskeletal: No Back Pain, No Neck Pain Skin: No Rash Neurological: No Dizziness, No Focal Weakness, No Sensory Changes Psychological: Depression, Homicidal Ideations, Emotional Lability, Mood Changes Endocrine: No Symptoms All Other Systems: Reviewed and Negative - Nursing Vital Signs Nursing Vital Signs: Initial Vital Signs Temperature 98.9 F 09/07/18 14:09 Pulse Rate 69 09/07/18 14:09 Respiratory Rate 20 09/07/18 14:09 Blood Pressure 144/84 09/07/18 14:09 O2 Sat by Pulse Oximetry 97 09/07/18 14:09 Pain Scale Pain Intensity 0 - Physical Exam General Appearance: no apparent distress Eyes, Ears, Nose, Throat Exam: normal ENT inspection Neck Exam: normal inspection Respiratory Exam: normal breath sounds, pleural rub Peripheral Pulses: carotid (R): 2+, carotid (L): 2+, femoral (R): 2+, femoral (L ): 2+, dorsalis-pedis (R): 2+, dorsalis-pedis (L): 2+ Current Suicidality: denies suicide plan Neurological Exam: alert, anxious, depressed affect Appearance: disheveled Behavior/Eye Contact/Speech: alert & cooperative, refused to answer, threatening eye contact, increased rate of speech, belligerent, compulsive, agitated Thoughts/Hallucinations: flight of ideas Skin Exam: normal color SpO2 Interpretation: normal SpO2: 97 Oxygen Delivery: Room Air - Course EKG Interpreted by Me: RATE, Sinus Rhythm, NORMAL AXIS Ordered Tests: Active Orders 24 hr Category Date Time Status EKG-ER Only STAT Care 09/07/18 18:42 Active CBC W DIFF Stat Lab 09/07/18 14:57 Completed CMP Stat Lab 09/07/18 14:57 Completed ETHYL ALCOHOL Stat Lab 09/07/18 14:57 Completed Urine Triage Profile Stat Lab 09/07/18 16:15 Completed Medication Summary Discontinued Medications Generic Name Dose Route Start Last Admin Trade Name Freq PRN Reason Stop Dose Admin Haloperidol Lactate 5 mg 09/07/18 15:45 09/07/18 15:53 Haldol 5 Mg IM 09/07/18 15:46 5 mg STAT ONE Administration Haloperidol Lactate Confirm 09/07/18 15:46 Haldol 5 Mg Administered 09/07/18 15:47 Dose 5 mg .ROUTE .STK-MED ONE Lab/Rad Data: Laboratory Result Diagrams 09/07/18 14:57 09/07/18 14:57 Laboratory Results 09/07/18 09/07/18 09/07/18 Range/Units 16:15 14:57 14:57 WBC 9.9 (4.0-10.5) K/mm3 RBC 3.47 L (4.1-5.4) M/mm3 Hgb 11.5 L (12.0-16.0) gm/dl Hct 33.8 L (35-47) % MCV 97.4 (78-100) fl MCH 33.1 H (26-32) pg MCHC 34.0 (32-36) g/dl RDW 12.5 (11.5-14.0) % Plt Count 289 (150-450) K/mm3 MPV 10.2 H (6-9.5) fl Gran % 64.1 (36.0-66.0) % Eos # (Auto) 0.04 (0-0.5) Absolute Lymphs (auto) 2.91 (1.0-4.6) Absolute Monos (auto) 0.56 (0.0-1.3) Lymphocytes % 29.5 (24.0-44.0) % Monocytes % 5.7 (0.0-12.0) % Eosinophils % 0.4 (0.00-5.0) % Basophils % 0.3 (0.0-0.4) % Absolute Granulocytes 6.32 (1.4-6.9) Basophils # 0.03 (0-0.4) Sodium 143 (137-145) mmol/L Potassium 4.0 (3.5-5.1) mmol/L Chloride 106 (98-107) mmol/L Carbon Dioxide 26 (22-30) mmol/L Anion Gap 14.9 (5-15) MEQ/L BUN 17 (7-17) mg/dL Creatinine 0.78 (0.52-1.04) mg/dL Estimated GFR > 60.0 ML/MIN Glucose 104 (74-106) mg/dL Calcium 10.0 (8.4-10.2) mg/dL Total Bilirubin 0.40 (0.2-1.3) mg/dL AST 23 (14-36) U/L ALT 18 (0-35) U/L Alkaline Phosphatase 72 (38-126) U/L Serum Total Protein 7.3 (6.3-8.2) g/dL Albumin 4.6 (3.5-5.0) g/dL Urine Opiates Level NEGATIVE (NEGATIVE) Ur Methadone NEGATIVE (NEGATIVE) Urine Barbiturates NEGATIVE (NEGATIVE) Ur Phencyclidine (PCP) NEGATIVE (NEGATIVE) Urine Amphetamine NEGATIVE (NEGATIVE) U Benzodiazepine Level POSITIVE (NEGATIVE) Urine Cocaine NEGATIVE (NEGATIVE) Urine Marijuana (THC) POSITIVE (NEGATIVE) Ethyl Alcohol < 10 (0-10) mg/dL - Progress Progress Note: 09/07/18 17:48 PATIENT ARRIVES TO EMERGENCY ROOM WITH AGITATION, CRUSING SPEECH, RAMBLING SPEECH, FLIGHT OF IDEAS, MAKING THREATS TO STAFF. Discussed with : Other (DISCUSSED WITH DR HUIZAR AT [address] [facility]IA [facility]) - Departure Time of Disposition: 20:13 Departure Disposition: Transfer Clinical Impression: ACUTE TABITHA, SCHIZOPHRENIA Condition: Stable Critical Care Time: No Referrals: ELENA FRIAS, FEATHER WASHER [Primary Care Provider] -
[2018-09-07 15:03] LABS: BASOPHIL % 0.3 % (0.0-0.4); Basophil (Absolute #) 0.03 (0-0.4); Eosinophil % 0.4 % (0.00-5.0); Eosinophil (Absolute #) 0.04 (0-0.5); Granulocyte Absolute (ANC) 6.32 (1.4-6.9); Granulocytes % 64.1 % (36.0-66.0); Hematocrit 33.8 % (35-47); Hemoglobin 11.5 gm/dl (12.0-16.0); Lymphocyte (Absolute #) 2.91 (1.0-4.6); Lymphocytes % 29.5 % (24.0-44.0); Mean Cell Volume 97.4 fl (78-100); Mean Corpuscular Hemoglobin 33.1 pg (26-32); Mean Platelet Volume 10.2 fl (6-9.5); Monocyte (Absolute #) 0.56 (0.0-1.3); Monocytes % 5.7 % (0.0-12.0); Platelet Count 289 K/mm3 (150-450); Red Blood Count 3.47 M/mm3 (4.1-5.4); Red Cell Distribution Width 12.5 % (11.5-14.0); White Blood Count 9.9 K/mm3 (4.0-10.5)
[2018-09-07 15:19] LABS: ALBUMIN 4.6 g/dL (3.5-5.0); ALKALINE PHOSPHATASE 72 U/L (38-126); ANION GAP 14.9 MEQ/L (5-15); BLOOD UREA NITROGEN 17 mg/dL (7-17); CHLORIDE 106 mmol/L (98-107); Carbon Dioxide 26 mmol/L (22-30); Creatinine 1 0.78 mg/dL (0.52-1.04); Glucose 104 mg/dL (74-106); SGOT/AST 23 U/L (14-36); SGPT/ALT 18 U/L (0-35); SODIUM 143 mmol/L (137-145); Total Protein 7.3 g/dL (6.3-8.2)
[2018-09-07 15:43] LABS: ETHYL ALCOHOL < 10 mg/dL (0-10)
[2018-09-07] MEDS ORDERED: Haldol 5 MG IM ONE (15:45)
[2018-09-07] MEDS ORDERED: Haldol 5 MG ONE (15:46)
[2018-09-07 16:56] LABS: Amphetamine,Urine NEGATIVE (NEGATIVE); Barbiturate,Urine NEGATIVE (NEGATIVE); Benzodiazepine,Urine POSITIVE (NEGATIVE); Cocaine,Urine NEGATIVE (NEGATIVE); Methadone,Urine NEGATIVE (NEGATIVE); Opiate,Urine NEGATIVE (NEGATIVE); PCP,Urine NEGATIVE (NEGATIVE); THC,Urine POSITIVE (NEGATIVE)
[2018-09-07 19:57] VITALS: BP 100/56; PULSE 92; O2SAT 94
== END 2018-09-07 20:08 ==
LOC: ED 13:54
DX: F30.9 Manic episode, unspecified (principal); F20.9 Schizophrenia, unspecified; Z79.899 Other long term (current) drug therapy
CPT/HCPCS: 36415; 80053; 80307; 85025; 93005; 96372; 99285; G0480; J1630

== ENCOUNTER 2020-12-02 16:03 | Emergency (ER) | payer OTHER ==
--- NOTE | 2020-12-02 16:25 | ERPHSYRPT ---
- History of Present Illness Time Seen by Provider: 12/02/20 16:24 Historian: patient, EMS Exam Limitations: no limitations Patient Subjective Stated Complaint: Pt c/o of abdominal/flank pain for the past month, pt has not seen a doctor, pt has been urinating blood for approx 2 weeks Triage Nursing Assessment: Pt was brought to the ER via EMS, tachycardic, hypertensive, febrile, rates pain 10/10, pt reports falling multiple times and is dizzy when she stands at most times, skin n/hot/d, hematuria for approx 2 weeks, pain in left flank that radiates to the left abdomen Physician History: This is an obese 50-year-old white female who has a history of hypertension, asthma, COPD, colitis, anxiety, depression and ureteral stones who was brought in by the ambulance service because of 4-week history of bilateral flank and abdominal pain. It is worsening. There is been associated hematuria for the last 2 weeks. Patient complains of bilateral flank pain and bilateral suprapubic pain. She has not had any nausea vomiting or diarrhea. She has had a fever. He has no chest pain and she is not short of breath. Patient had similar episodes a few years ago. She has a history of nephrolithiasis and ureteral stones in the past. Patient is febrile, tachycardic and her left flank pain radiates to her left lower abdomen. Timing/Duration: worse, other (For a month) Activities at Onset: none Quality: sharpness, stabbing Abdominal Pain Onset Location: flank (Bilateral with left greater than right) Pain Radiation: LLQ, other (Left flank pain radiates to the left lower quadrant) Severity of Pain-Max: moderate Severity of Pain-Current: moderate Modifying Factors: Improves With: nothing Associated Symptoms: fever/chills, other (Hematuria) Allergies/Adverse Reactions: ketorolac [From Toradol] Allergy (Mild, Verified 12/02/20 16:18) tramadol Allergy (Mild, Verified 12/02/20 16:18) erythromycin base Allergy (Verified 12/02/20 16:18) Home Medications: Alprazolam 1 mg [Xanax 1 mg] 1 mg PO TID 01/25/18 [History] Amitriptyline HCl 10 mg [Elavil 10 mg] 100 mg PO HS 01/25/18 [History] Escitalopram Oxalate 10 mg [Lexapro 10 MG] 20 mg PO DAILY 01/25/18 [History] ARIPiprazole [Aripiprazole] 20 mg PO DAILY 12/02/20 [History] Dextroamphetamine/Amphetamine [Dextroamp-Amphetamin 15 mg Tab] 15 mg PO DAILY 12/02/20 [History] Hx Tetanus, Diphtheria Vaccination/Date Given: No Hx Influenza Vaccination/Date Given: No Hx Pneumococcal Vaccination/Date Given: No Travel Risk - International Travel Have you traveled outside of the country in past 3 weeks: No - Coronavirus Screening Are you exhibiting any of the following symptoms?: No Close contact with a COVID-19 positive Pt in past 14-21 Days: No - Review of Systems Constitutional: Fever Eyes: No Symptoms Ears, Nose, & Throat: No Symptoms Respiratory: No Symptoms Cardiac: No Symptoms Abdominal/Gastrointestinal: Abdominal Pain (Left lower quadrant and bilateral suprapubic) Genitourinary Symptoms: Dysuria, Hematuria Musculoskeletal: No Symptoms Skin: No Symptoms Neurological: No Symptoms Psychological: No Symptoms Endocrine: No Symptoms Hematologic/Lymphatic: No Symptoms Immunological/Allergic: No Symptoms All Other Systems: Reviewed and Negative - Past Medical History Pertinent Past Medical History: Yes Cardiac History: Hypertension Respiratory History: Asthma, COPD GI Medical History: Colitis Psycho-Social History: Anxiety, Depression - Past Surgical History Past Surgical History: Yes Female Surgical History: Hysterectomy - Social History Smoking Status: Unknown if ever smoked How long have you smoked: 38 years Exposure to second hand smoke: Yes Drug Use: marijuana Patient Lives Alone: Yes - Female History Hx Now: No (hysterectomy) - Nursing Vital Signs Nursing Vital Signs: Initial Vital Signs Temperature 101.0 F 12/02/20 16:05 Pulse Rate 115 H 12/02/20 16:05 Respiratory Rate 19 12/02/20 16:05 Blood Pressure 152/132 12/02/20 16:05 O2 Sat by Pulse Oximetry 98 12/02/20 16:05 Pain Scale Pain Intensity 10 - Physical Exam General Appearance: mild distress, alert, anxiety, obese Eye Exam: PERRL/EOMI, eyes nml inspection Ears, Nose, Throat Exam: normal ENT inspection, moist mucous membranes Neck Exam: normal inspection, non-tender, supple, full range of motion Respiratory Exam: normal breath sounds, lungs clear, airway intact, No chest tenderness, No respiratory distress Cardiovascular Exam: tachycardia Gastrointestinal/Abdomen Exam: soft, normal bowel sounds, tenderness (Left lower quadrant and bilateral suprapubic) Pelvic Exam: not done Rectal Exam: not done Back Exam: normal inspection, normal range of motion, CVA tenderness (Bilateral), No vertebral tenderness Extremity Exam: normal inspection, normal range of motion, pelvis stable Neurologic Exam: alert, oriented x 3, cooperative, nursing home physician II-XII nml as tested, normal mood/affect, nml cerebellar function, nml station & gait, sensation nml Skin Exam: normal color, warm, dry Lymphatic Exam: No adenopathy SpO2 Interpretation: normal SpO2: 98 O2 Delivery: Room Air - Course Nursing assessment & vital signs reviewed: Yes Ordered Tests: Active Orders 24 hr Category Date Time Status IV Insertion STAT Care 12/02/20 16:28 Active ABDOMEN AND PELVIS W/0 CONTRAS [CT] Stat Exams 12/02/20 16:35 Completed AMYLASE Stat Lab 12/02/20 17:00 Completed BLOOD CULTURE Stat Lab 12/02/20 17:00 Received CBC W DIFF Stat Lab 12/02/20 17:00 Completed CMP Stat Lab 12/02/20 17:00 Completed LIPASE Stat Lab 12/02/20 17:00 Completed Lactic Acid Stat Lab 12/02/20 16:34 Completed UA W/RFX UR CULTURE Stat Lab 12/02/20 16:34 Ordered Medication Summary Generic Name Dose Route Start Last Admin Trade Name Freq PRN Reason Stop Dose Admin Ceftriaxone Sodium/Dextrose 1 g in 50 mls @ 100 mls/hr 12/02/20 17:55 Rocephin 1 Gm-D5w 50 Ml Bag IV 12/02/20 18:24 STAT STA Discontinued Medications Generic Name Dose Route Start Last Admin Trade Name Freq PRN Reason Stop Dose Admin Hydromorphone HCl 1 mg 12/02/20 16:34 12/02/20 16:47 Hydromorphone 1 Mg/Ml Injection IV 12/02/20 16:35 1 mg STAT ONE Administration Hydromorphone HCl Confirm 12/02/20 16:42 Hydromorphone 1 Mg/Ml Injection Administered 12/02/20 16:43 Dose 1 mg .ROUTE .STK-MED ONE Sodium Chloride 1,000 mls @ 999 mls/hr 12/02/20 16:34 12/02/20 16:48 Sodium Chloride 0.9% 1000 Ml IV 12/02/20 17:34 999 mls/hr .Q1H1M STA Administration Sodium Chloride Confirm 12/02/20 16:42 Sodium Chloride 0.9% 1000 Ml Administered 12/02/20 16:43 Dose 1,000 mls @ ud .ROUTE .STK-MED ONE Ondansetron HCl 4 mg 12/02/20 16:34 12/02/20 16:47 Zofran 4 Mg/2 Ml Vial IV 12/02/20 16:35 4 mg STAT ONE Administration Ondansetron HCl Confirm 12/02/20 16:41 Zofran 4 Mg/2 Ml Vial Administered 12/02/20 16:42 Dose 4 mg .ROUTE .STK-MED ONE Lab/Rad Data: Laboratory Result Diagrams 12/02/20 17:00 12/02/20 17:00 Laboratory Results 12/02/20 12/02/20 12/02/20 Range/Units 17:00 17:00 16:34 WBC 14.2 H (4.0-10.5) K/mm3 RBC 4.02 L (4.1-5.4) M/mm3 Hgb 12.3 (12.0-16.0) gm/dl Hct 37.7 (35-47) % MCV 93.8 (78-100) fl MCH 30.6 (26-32) pg MCHC 32.6 (32-36) g/dl RDW 13.1 (11.5-14.0) % Plt Count 251 (150-450) K/mm3 MPV 10.1 (7.5-11.0) fl Gran % 76.0 H (36.0-66.0) % Eos # (Auto) 0.07 (0-0.5) Absolute Lymphs (auto) 2.48 (1.0-4.6) Absolute Monos (auto) 0.83 (0.0-1.3) Lymphocytes % 17.5 L (24.0-44.0) % Monocytes % 5.8 (0.0-12.0) % Eosinophils % 0.5 (0.00-5.0) % Basophils % 0.2 (0.0-0.4) % Absolute Granulocytes 10.80 H (1.4-6.9) Basophils # 0.03 (0-0.4) Sodium 136 L (137-145) mmol/L Potassium 3.5 (3.5-5.1) mmol/L Chloride 104 (98-107) mmol/L Carbon Dioxide 24 (22-30) mmol/L Anion Gap 11.6 (5-15) MEQ/L BUN 25 H (7-17) mg/dL Creatinine 3.68 H (0.52-1.04) mg/dL Estimated GFR 13.9 ML/MIN Glucose 109 H (74-106) mg/dL Lactic Acid 1.0 (0.4-2.0) Calcium 9.8 (8.4-10.2) mg/dL Total Bilirubin 0.40 (0.2-1.3) mg/dL AST 25 (14-36) U/L ALT 14 (0-35) U/L Alkaline Phosphatase 101 (38-126) U/L Serum Total Protein 7.2 (6.3-8.2) g/dL Albumin 4.0 (3.5-5.0) g/dL Amylase 74 (30-110) U/L Lipase 55 (23-300) U/L - Progress Progress: improved, pain not gone completely Progress Note: 12/02/20 17:40 CAT scan of the abdomen pelvis without contrast shows a new proximal left and proximal right ureteral calculi producing obstructive uropathy right greater than left. The right ureteral stone is 7 to 8 mm and the left proximal ureteral stone is 10 to 11 mm. There is hydronephrosis bilaterally with right being greater than left. There is also mild edema and perinephric stranding around the right kidney. 12/02/20 18:02 Medical decision making: I spoke with Dr. Haines the ER physician on at [facility]. This patient needs urologic evaluation and management today. She is having obstructive uropathy and compared to a creatinine that is normal 3 years ago she has a very elevated creatinine level. I reviewed the patient history, condition, lab results and CAT scan of the abdomen pelvis findings with Dr. Haines. He accepts the patient in transfer. Counseled pt/family regarding: lab results, diagnosis, need for follow-up, rad results - Departure Departure Disposition: Transfer Clinical Impression: Bilateral ureteral calculi, Obstructive uropathy, Hematuria Condition: Stable Critical Care Time: No Referrals: ELENA FRIAS, DOOR CLOSER [Primary Care Provider] -
[2020-12-02] MEDS ORDERED: Zofran 4 MG/2 ML VIAL IV ONE ×2 (16:34→19:00)
[2020-12-02] MEDS ORDERED: Sodium Chloride 0.9% 1000 ML 1,000 ML IV STA (16:34)
[2020-12-02] MEDS ORDERED: Hydromorphone 1 mg/ml Injection IV ONE ×2 (16:34→19:00)
[2020-12-02] MEDS ORDERED: Zofran 4 MG/2 ML VIAL ONE ×2 (16:41→19:01)
[2020-12-02] MEDS ORDERED: Sodium Chloride 0.9% 1000 ML 1,000 ML ONE (16:42)
[2020-12-02] MEDS ORDERED: Hydromorphone 1 mg/ml Injection ONE ×2 (16:42→19:01)
--- NOTE | 2020-12-02 17:04 | XRAY ---
Indication: Bilateral flank pain. Hematuria. Multiple contiguous axial images obtained through the abdomen and pelvis without contrast. Comparison: August 15, 2018. Lung bases demonstrate stable left lower lobe/left infrahilar calcified granulomas and tiny peripheral right lower lobe noncalcified granuloma. No infiltrate or effusion. Heart is not enlarged. Noncontrasted stomach and bowel loops appear nonobstructed. Moderate fecal debris in the right hemicolon. New 7-8 mm proximal right (approximately L3 level) and new 10-11 mm proximal left ureter (approximately L2 level) calculi with moderate hydronephrosis, right greater than left. Right kidney also demonstrates mild edema/perinephric stranding and small perinephric fluid consistent with high-grade obstructive uropathy. Additional inferior right renal punctate calculus. Stable splenic calcific granulomas and hysterectomy. Remaining liver, gallbladder, pancreas, spleen, adrenal glands, kidneys, ureters, bladder, and aorta appear unremarkable for noncontrast exam. Osseous structures intact with stable multilevel thoracal lumbar Schmorl nodes. Impression: 1. New proximal left and proximal right ureteral calculi producing obstructive uropathy, right greater than left as detailed. Additional right renal microcalculus. 2. Again incidental old granulomatous disease.
[2020-12-02 17:26] LABS: ANION GAP 11.6 MEQ/L (5-15); BILIRUBIN,TOTAL 0.4 mg/dL (0.2-1.3); Calcium 9.8 mg/dL (8.4-10.2); Creatinine 1 3.68 mg/dL (0.52-1.04); EST GLOMERULAR FILTRATION RATE 13.9 ML/MIN; Potassium 3.5 mmol/L (3.5-5.1); Total Protein 7.2 g/dL (6.3-8.2)
[2020-12-02 17:31] LABS: BASOPHIL % 0.2 % (0.0-0.4); Basophil (Absolute #) 0.03 (0-0.4); Eosinophil % 0.5 % (0.00-5.0); Eosinophil (Absolute #) 0.07 (0-0.5); Hematocrit 37.7 % (35-47); Hemoglobin 12.3 gm/dl (12.0-16.0); Lymphocyte (Absolute #) 2.48 (1.0-4.6); Lymphocytes % 17.5 % (24.0-44.0); Mean Cell Volume 93.8 fl (78-100); Mean Corpuscular Hemoglobin 30.6 pg (26-32); Mean Corpuscular Hgb Concent. 32.6 g/dl (32-36); Mean Platelet Volume 10.1 fl (7.5-11.0); Monocyte (Absolute #) 0.83 (0.0-1.3); Monocytes % 5.8 % (0.0-12.0); Platelet Count 251 K/mm3 (150-450); Red Blood Count 4.02 M/mm3 (4.1-5.4); Red Cell Distribution Width 13.1 % (11.5-14.0); White Blood Count 14.2 K/mm3 (4.0-10.5)
[2020-12-02] MEDS ORDERED: ROCEPHIN 1 Gm-D5w 50 ml Bag** 1 G/50 ML IVPB IV STA (17:55)
[2020-12-02] MEDS ORDERED: ROCEPHIN 1 Gm-D5w 50 ml Bag** 1 G/50 ML IVPB IV ONE (18:41)
[2020-12-02 18:47] VITALS: BP 185/113
[2020-12-02 19:08] VITALS: PULSE 100; O2SAT 95
[2020-12-02 19:13] LABS: Bacteria MANY /HPF (NEGATIVE); Bilirubin NEGATIVE (NEGATIVE); Blood MODERATE Ery/ul (0-5); Epithelial Cells FEW /HPF (FEW); Glucose 50 mg/dL (NEGATIVE); Ketones NEGATIVE (NEGATIVE); Leukocyte Esterase SMALL (NEGATIVE); Mucus SLIGHT /HPF (NEGATIVE); Nitrite NEGATIVE (NEGATIVE); Protein,Urine Dip 30 (Negative); RBC 51-100 /HPF (0-2); Specific Gravity 1.005 (1.005-1.025); Urobilinogen NEGATIVE mg/dL (0-1)
[2020-12-02 19:14] LABS: Appearance SLIGHTLY CLOUDY (CLEAR)
== END 2020-12-02 19:51 | disposition short-term general hospital (02) ==
LOC: ED 16:03
DX: N20.1 Calculus of ureter (principal); N13.9 Obstructive and reflux uropathy, unspecified; R31.9 Hematuria, unspecified; R10.9 Unspecified abdominal pain; I10 Essential (primary) hypertension; J44.9 Chronic obstructive pulmonary disease, unspecified; F41.9 Anxiety disorder, unspecified; R10.32 Left lower quadrant pain; R50.9 Fever, unspecified; Z79.899 Other long term (current) drug therapy
CPT/HCPCS: 36000; 36415; 74176; 80053; 81001; 82150; 83605; 83690; 85025; 87040; 87086; 96360; 96374; 96375; 96376; 99285; J0696; J1170; J2405

== ENCOUNTER 2022-11-26 11:16 | Emergency (ER) | payer OTHER ==
[2022-11-26] MEDS ORDERED: XYLOCAINE 1% HCL 20 ML MDV IJ ONE (11:17)
[2022-11-26 11:40] VITALS: BP 143/103; PULSE 115; O2SAT 95
[2022-11-26] MEDS ORDERED: Rocephin 1000 MG INJ IM ONE (11:41)
[2022-11-26] MEDS ORDERED: solu-CORTEF 250MG IM ONE (11:43)
--- NOTE | 2022-11-26 11:46 | ERPHSYRPT ---
- History of Present Illness Time Seen by Provider: 11/26/22 11:43 Source: patient Exam Limitations: no limitations Patient Subjective Stated Complaint: Pt has some cat scratches to her left arm and today she has some major swelling and a hard large swollen knot under her left elbow area, pt also c/o of right shoulder pain that she has had for years and has not seen her doctor for Triage Nursing Assessment: Pt brought to the ER by her , tachycardic, hypertensive, rates pain in her right shoulder and left arm as 8/10, pulses normal, skin n/w/d Physician History: Pt has some cat scratches to her left arm and today she has some major swelling and a hard large swollen knot under her left elbow area, pt also c/o of right shoulder pain that she has had for years and has not seen her doctor for Timing/Duration: yesterday Severity: moderate Modifying Factors: Improves With: cold therapy Associated Symptoms: denies symptoms Allergies/Adverse Reactions: ketorolac [From Toradol] Allergy (Mild, Verified 11/26/22 11:31) tramadol Allergy (Mild, Verified 11/26/22 11:31) erythromycin base Allergy (Verified 11/26/22 11:31) Home Medications: Escitalopram Oxalate [Lexapro 10 MG] 20 mg PO DAILY 01/25/18 [History] ARIPiprazole [Aripiprazole] 20 mg PO DAILY 12/02/20 [History] Dextroamphetamine/Amphetamine [Dextroamp-Amphetamin 15 mg Tab] 30 mg PO DAILY 12/02/20 [History] Amantadine HCl [Amantadine] 100 mg PO BID 11/26/22 [History] Prazosin HCl [Minipress] 2 mg PO DAILY 11/26/22 [History] Quetiapine Fumarate 300 mg PO HS 11/26/22 [History] clonazePAM [Clonazepam] 1 mg PO TID 11/26/22 [History] Hx Tetanus, Diphtheria Vaccination/Date Given: No Hx Influenza Vaccination/Date Given: No Hx Pneumococcal Vaccination/Date Given: No Travel Risk - International Travel Have you traveled outside of the country in past 3 weeks: No - Coronavirus Screening Are you exhibiting any of the following symptoms?: No Close contact with a COVID-19 positive Pt in past 14-21 Days: No - Vaccine Status Have you recieved a Covid-19 vaccination: Yes 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[employer] - Vaccination Dates Date of 2cond Vaccination (if applicable): 2020 - Review of Systems Constitutional: No Symptoms Eyes: No Symptoms Ears, Nose, & Throat: No Symptoms Respiratory: No Symptoms Cardiac: No Symptoms Abdominal/Gastrointestinal: No Symptoms Genitourinary Symptoms: No Symptoms Musculoskeletal: Joint Pain (right shoulder) Skin: Cellulitis (left elbow) Neurological: No Symptoms Psychological: No Symptoms Endocrine: No Symptoms Hematologic/Lymphatic: No Symptoms Immunological/Allergic: No Symptoms - Past Medical History Pertinent Past Medical History: Yes Cardiac History: Hypertension Respiratory History: Asthma, COPD GI Medical History: Colitis Psycho-Social History: Anxiety, Depression - Past Surgical History Past Surgical History: Yes Female Surgical History: Hysterectomy - Social History Smoking Status: Unknown if ever smoked How long have you smoked: 38 years Exposure to second hand smoke: Yes Drug Use: marijuana Patient Lives Alone: No - Nursing Vital Signs Nursing Vital Signs: Initial Vital Signs Temperature 98.0 F 11/26/22 11:24 Pulse Rate 115 H 11/26/22 11:24 Blood Pressure 143/103 11/26/22 11:24 O2 Sat by Pulse Oximetry 95 11/26/22 11:24 Pain Scale Pain Intensity 8 - Physical Exam General Appearance: no apparent distress Eye Exam: PERRL/EOMI Ears, Nose, Throat Exam: normal ENT inspection Neck Exam: normal inspection Respiratory Exam: normal breath sounds Cardiovascular Exam: regular rate/rhythm Gastrointestinal/Abdomen Exam: soft Back Exam: normal inspection Extremity Exam: normal inspection Neurologic Exam: alert, oriented x 3, 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, normal mood/affect, nml cerebellar function Skin Exam: normal color, other (redness around left elbow) SpO2 Interpretation: normal SpO2: 95 O2 Delivery: Room Air - Course Nursing assessment & vital signs reviewed: Yes - Radiology Exams Shoulder X-ray Interpretation: Reviewed by me, Negative, No Fracture, No Subluxation Ordered Tests: Active Orders 24 hr Category Date Time Status SHOULDER Stat Exams 11/26/22 11:41 Taken Medication Summary Discontinued Medications Generic Name Dose Route Start Last Admin Trade Name Freq PRN Reason Stop Dose Admin Ceftriaxone Sodium 1,000 mg 11/26/22 11:41 Ceftriaxone Sodium 1000 Mg Inj Vial IM 11/26/22 11:42 STAT ONE Ceftriaxone Sodium Confirm 11/26/22 12:06 Ceftriaxone Sodium 1000 Mg Inj Vial Administered 11/26/22 12:07 Dose 1,000 mg .ROUTE .STK-MED ONE Hydrocortisone Sodium Succinate 250 mg 11/26/22 11:43 Hydrocortisone Sod Succinate 250 Mg/Vial Vial IM 11/26/22 11:44 Q6H ONE Hydrocortisone Sodium Succinate Confirm 11/26/22 12:06 Hydrocortisone Sod Succinate 250 Mg/Vial Vial Administered 11/26/22 12:07 Dose 250 mg .ROUTE .STK-MED ONE - Progress Progress: improved, pain not gone completely Counseled pt/family regarding: diagnosis, need for follow-up, rad results Medical Desision Making - Discussion of managment Agreed on:: Treatment plan, need for follow-up - Diagnostic Testing Diagnostic test were ordered, analyzed, and reviewed by me: Yes Radiological Interpretation: Interpreted by me, Reviewed by me - Departure Departure Disposition: Home Clinical Impression: Cellulitis and abscess of upper arm and forearm, Dysfunction of right rotator cuff Condition: Stable Critical Care Time: No Referrals: CAESAR GRAHAM NP [Primary Care Provider] - [facility] [id number] Instructions: Cellulitis (Skin Infection), Adult (DC), Cellulitis (Skin Infection), Adult ED, Shoulder Tendinopathy (DC) Additional Instructions: Discharge/Care Plan LUIS ROBLES was seen on 11/26/22 in the Emergency Room. The patient was counseled regarding Diagnosis,Lab results, Imaging studies, need for follow up and when to return to the Emergency Room. Prescriptions given: Discharge Note I have spoken with the patient and/or caregivers. I have explained the patient's condition, diagnosis and treatment plan based on the information available to me at this time. I have answered the patient's and/or caregiver's questions and addressed any concerns. The patient and/or caregivers have as good understanding of the patient's diagnosis, condition and treatment plan as can be expected at this point. The vital signs have been stable. The patient's condition is stable and appropriate for discharge from the emergency department. The patient will pursue further outpatient evaluation with the primary care physician or other designated or consulting physician as outlined in the discharge instructions. The patient and/or caregivers are agreeable to this plan of care and follow-up instructions have been explained in detail. The patient and/or caregivers have received these instruction. The patient/and or caregivers are aware that any significant change in condition or worsening of symptoms should prompt an immediate return to this or the closest emergency department or call 911. LUIS ROBLES was seen on 11/26/22 n the Emergency Room. At that time you were treated for an emergent condition, during your visit Laboratory, Radiology and/or other procedures may have been ordered. It is very important that you follow-up with your Primary Care Physician CAESAR GRAHAM within the next 24-48 hours to review your Emergency Room visit and the final results of testing that was ordered. Some test results such as Urine Cultures, Blood Cultures, and other cultures if ordered will not be finalized for 24-48 hours. If you do not have a Primary Care Provider please call the medical records department at [phone] ext [phone] to obtain a copy of your results or you may sign into our patient portal to obtain these results by visiting us @ [email or web address] and completing the following steps: 1. Click on the Patient Portal link 2. Click the Patient Self Enrollment Link to complete the enrollment form and entering your 3. Once the enrollment form is completed you will receive an email with a temporary ID and password at the email address you provided. 4. Next choose a user name and password. Your user name must be at least 4 characters long and your password must be at least 4 characters long. 5. Choose a security question from the list and provide your answer to the question. If you already have signed into the Health Portal you may access your Health Care Information 01/05 by the following steps: 1. Login to our website @ [email or web address] 2. Enter your original user name and password. FAQS The [facility] Health Portal is an online tool that contains your Lab Results, Radiology Reports, Visit History, Discharge Instructions and Health Summary Lab and Radiology Results will not be available for 72 hours on the portal. The Portal is a secure site, passwords are encryted and URLs are re-written so they cannot be copied and pasted. You and authorized family members are the only ones who can access your Portal. Also there is a timeout feature that protects your information if you leave the Portal page open. If you have technical difficulty please use the Contact Us link on the page this will allow you to submit any questions you have regarding the Portal or you may contact the Medical Record Department at [phone]. Prescriptions: Indomethacin 25 mg [Indocin 25 MG] 25 mg PO TID #20 cap Cephalexin Mh 500 mg [Keflex 500 mg] 500 mg PO Q6H #40 cap
[2022-11-26] MEDS ORDERED: solu-CORTEF 250MG ONE (12:06)
[2022-11-26] MEDS ORDERED: Rocephin 1000 MG INJ ONE (12:06)
--- NOTE | 2022-11-26 20:21 | XRAY ---
Indication: Pain. Limited range of motion. Comparison: None 3 view right shoulder demonstrates osteopenia, tiny glenohumeral joint punctate heterotopic ossification, old lateral 6 rib fracture, and 1 cm right axilla calcified node. No other bony, articular, or soft tissue abnormalities.
== END 2022-11-26 12:32 | disposition home or self-care (01) ==
LOC: ED 11:16
DX: L02.414 Cutaneous abscess of left upper limb (principal); L03.114 Cellulitis of left upper limb; M75.101 Unspecified rotator cuff tear or rupture of right shoulder, not specified as traumatic; I10 Essential (primary) hypertension; Z79.899 Other long term (current) drug therapy
CPT/HCPCS: 73030; 96372; 99283; J0696; J1720

== ENCOUNTER 2023-01-17 18:13 | Emergency (ER) | payer OTHER ==
[2023-01-17 18:24] VITALS: O2SAT 97
[2023-01-17] MEDS ORDERED: BABY ASPIRIN 81 MG CHEW PO ONE (18:34)
[2023-01-17] MEDS ORDERED: BABY ASPIRIN 81 MG CHEW ONE (18:35)
--- NOTE | 2023-01-17 18:40 | ERPHSYRPT ---
- History of Present Illness Historian: patient Exam Limitations: no limitations Patient Subjective Stated Complaint: Pt states "I have had chest pain on and off for the past couple of weeks. Today the pain went up into my neck on both sides." Triage Nursing Assessment: PT presented alert and oriented X 3, skin wpd. Pt ambulates with an upright steady gait, able to speak in clear full sentences. PT in no appaerent respiratory distress. Physician History: 52 yo Wf w mid-sternal chest pain w radiation to B ears x 1 month. pain is 6/10 and has been up to 10/10. Pain is accompanied by nausea/diaphoresis/dyspnea. It is described as pressure. Pt has htn/hyperlipidemia/smokes 1ppd. She denies [place]/CAD. Nothing makes the pain better or worse. Timing/Duration: other (1 month) Activities at Onset: rest Quality: pressure Location: substernal Chest Pain Radiation: neck Severity of Pain-Max: severe Severity of Pain-Current: moderate Modifying Factors: Improves With: nothing Associated Symptoms: nausea, shortness of breath, diaphoresis Prior Chest Pain/Cardiac Workup: no prior chest pain Nitro Today/Relief: no nitro taken today Aspirin Treatment Today: no aspirin today Allergies/Adverse Reactions: ketorolac [From Toradol] Allergy (Mild, Verified 11/26/22 11:31) tramadol Allergy (Mild, Verified 11/26/22 11:31) erythromycin base Allergy (Verified 11/26/22 11:31) Home Medications: Escitalopram Oxalate [Lexapro 10 MG] 20 mg PO DAILY 01/25/18 [History] ARIPiprazole [Aripiprazole] 20 mg PO DAILY 12/02/20 [History] Dextroamphetamine/Amphetamine [Dextroamp-Amphetamin 15 mg Tab] 30 mg PO DAILY 12/02/20 [History] Amantadine HCl [Amantadine] 100 mg PO BID 11/26/22 [History] Quetiapine Fumarate 300 mg PO HS 11/26/22 [History] clonazePAM [Clonazepam] 1 mg PO TID 11/26/22 [History] Albuterol Sulfate 1 unit IH DAILY PRN 01/17/23 [History] Hx Tetanus, Diphtheria Vaccination/Date Given: No Hx Influenza Vaccination/Date Given: No Hx Pneumococcal Vaccination/Date Given: No Travel Risk - International Travel Have you traveled outside of the country in past 3 weeks: No - Coronavirus Screening Are you exhibiting any of the following symptoms?: No Close contact with a COVID-19 positive Pt in past 14-21 Days: No - Vaccine Status Have you recieved a Covid-19 vaccination: Yes 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[employer] - Vaccination Dates Date of 2cond Vaccination (if applicable): 2020 - Review of Systems Constitutional: No Symptoms Eyes: No Symptoms Ears, Nose, & Throat: No Symptoms Respiratory: No Symptoms, Dyspnea Cardiac: No Symptoms, Chest Pain Abdominal/Gastrointestinal: No Symptoms, Nausea Genitourinary Symptoms: No Symptoms Musculoskeletal: No Symptoms Skin: No Symptoms Neurological: No Symptoms Psychological: No Symptoms Endocrine: No Symptoms Hematologic/Lymphatic: No Symptoms Immunological/Allergic: No Symptoms - Past Medical History Pertinent Past Medical History: Yes Cardiac History: Hypertension Respiratory History: Asthma, COPD GI Medical History: Colitis Psycho-Social History: Anxiety, Depression, Other Other Medical History: schizophrenia - Past Surgical History Past Surgical History: Yes Female Surgical History: Hysterectomy - Social History Smoking Status: Current every day smoker How long have you smoked: 20 years Exposure to second hand smoke: Yes Drug Use: marijuana Patient Lives Alone: Yes - Nursing Vital Signs Nursing Vital Signs: Initial Vital Signs Temperature 99.2 F 01/17/23 18:14 Pulse Rate 115 H 01/17/23 18:14 Respiratory Rate 20 01/17/23 18:14 Blood Pressure 134/103 01/17/23 18:14 O2 Sat by Pulse Oximetry 97 01/17/23 18:14 Pain Scale Pain Intensity 6 Tachy/Hypertension - Physical Exam General Appearance: no apparent distress, anxiety Eye Exam: PERRL/EOMI, eyes nml inspection Ears, Nose, Throat Exam: normal ENT inspection, TMs normal, pharynx normal, moist mucous membranes Neck Exam: normal inspection, non-tender, supple, full range of motion, No menin gismus, No mass, No Brudzinski, No Kernig's, No carotid bruit Respiratory Exam: airway intact, wheezing (Occ wheeze B), No chest tenderness, No respiratory distress Cardiovascular Exam: tachycardia, capillary refill <2 sec, No murmur Gastrointestinal/Abdomen Exam: soft, normal bowel sounds, No tenderness Back Exam: normal inspection, normal range of motion Extremity Exam: normal inspection, normal range of motion Neurologic Exam: alert, oriented x 3, cooperative, 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, normal mood/affect, nml cerebellar function, nml station & gait, sensation nml, No motor deficits, No sensory deficit Skin Exam: normal color, warm, dry, No rash Lymphatic Exam: No adenopathy SpO2 Interpretation: normal SpO2: 97 O2 Delivery: Room Air - Course Nursing assessment & vital signs reviewed: Yes EKG Interpreted by Me: RATE (Sinus tach/Rate 115/prolonged QTc/Poor baseline/No acute ST segment changes/Twaves WNL/EKG #2/NSR/Rate 97/Prolonged QTc/No acute ST segment changes) - CT Exams Chest CT Interpretation: Discussed w/radiologist (CTA of chest/No PE/MCDANIELS/Old R 6th rib fx) Ordered Tests: Active Orders 24 hr Category Date Time Status EKG-ER Only STAT Care 01/17/23 18:29 Active EKG-ER Only STAT Care 01/17/23 20:32 Active IV Insertion STAT Care 01/17/23 18:29 Active CHEST 1 VIEW (PORTABLE) Stat Exams 01/17/23 18:29 Taken CHEST WITH CONTRAST [CT] Stat Exams 01/17/23 19:24 Taken CBC W DIFF Stat Lab 01/17/23 18:45 Completed CMP Stat Lab 01/17/23 18:45 Completed D-DIMER QUANTITATIVE Stat Lab 01/17/23 18:45 Completed MAGNESIUM Stat Lab 01/17/23 18:45 Completed PROTIME WITH INR Stat Lab 01/17/23 18:45 Completed PTT Stat Lab 01/17/23 18:45 Completed TROPONIN Q4H Lab 01/17/23 18:45 Completed TROPONIN Q4H Lab 01/17/23 20:45 Completed TROPONIN Q4H Lab 01/18/23 02:30 Ordered Medication Summary Discontinued Medications Generic Name Dose Route Start Last Admin Trade Name Freq PRN Reason Stop Dose Admin Aspirin 324 mg 01/17/23 18:34 01/17/23 18:36 Aspirin 81 Mg Tab.Chew PO 01/17/23 18:35 324 mg STAT ONE Administration Aspirin Confirm 01/17/23 18:35 Aspirin 81 Mg Tab.Chew Administered 01/17/23 18:36 Dose 324 mg .ROUTE .STK-MED ONE Lorazepam 1 mg 01/17/23 18:41 01/17/23 18:51 Lorazepam 2 Mg/1 Ml 2 Mg Vial IV 01/17/23 18:42 1 mg STAT ONE Administration Lorazepam Confirm 01/17/23 18:50 Lorazepam 2 Mg/1 Ml 2 Mg Vial Administered 01/17/23 18:51 Dose 2 mg .ROUTE .STK-MED ONE Lab/Rad Data: Laboratory Result Diagrams 01/17/23 18:45 01/17/23 18:45 Laboratory Results 01/17/23 01/17/23 01/17/23 Range/Units 20:45 18:45 18:45 WBC (4.0-10.5) x10^3/uL RBC (4.1-5.4) x10^6/uL Hgb (12.0-16.0) g/dL Hct (35-47) % MCV (78-100) fL MCH (26-32) pg MCHC (32-36) g/dL RDW (11.5-14.0) % Plt Count (150-450) x10^3/uL MPV (7.5-11.0) fL Gran % (36.0-66.0) % Immature Gran % (Auto) (0.00-0.4) % Nucleat RBC Rel Count (0.00-0.1) % Eos # (Auto) (0-0.5) x10^3/uL Immature Gran # (Auto) (0.00-0.03) x10^3u/L Absolute Lymphs (auto) (1.0-4.6) x10^3/uL Absolute Monos (auto) (0.0-1.3) x10^3/uL Absolute Nucleated RBC (0.00-0.01) x10^3u/L Lymphocytes % (24.0-44.0) % Monocytes % (0.0-12.0) % Eosinophils % (0.00-5.0) % Basophils % (0.0-0.4) % Absolute Granulocytes (1.4-6.9) x10^3/uL Basophils # (0-0.4) x10^3/uL PT 10.2 (9.4-12.5) SECONDS INR 0.93 (0.8-3.0) APTT 23.3 L (25.1-36.5) SECONDS D-Dimer 0.56 H (0.0-0.50) mg/L Sodium (137-145) mmol/L Potassium (3.5-5.1) mmol/L Chloride (98-107) mmol/L Carbon Dioxide (22-30) mmol/L Anion Gap (5-15) MEQ/L BUN (7-17) mg/dL Creatinine (0.52-1.04) mg/dL Estimated GFR ML/MIN Glucose (74-106) mg/dL Calcium (8.4-10.2) mg/dL Magnesium (1.6-2.3) mg/dL Total Bilirubin (0.2-1.3) mg/dL AST (14-36) U/L ALT (0-35) U/L Alkaline Phosphatase (38-126) U/L Troponin I < 0.012 < 0.012 (0.000-0.034) ng/mL Serum Total Protein (6.3-8.2) g/dL Albumin (3.5-5.0) g/dL 01/17/23 01/17/23 Range/Units 18:45 18:45 WBC 10.6 H (4.0-10.5) x10^3/uL RBC 4.48 (4.1-5.4) x10^6/uL Hgb 14.0 (12.0-16.0) g/dL Hct 42.7 (35-47) % MCV 95.3 (78-100) fL MCH 31.3 (26-32) pg MCHC 32.8 (32-36) g/dL RDW 12.7 (11.5-14.0) % Plt Count 309 (150-450) x10^3/uL MPV 10.6 (7.5-11.0) fL Gran % 66.4 H (36.0-66.0) % Immature Gran % (Auto) 0.5 H (0.00-0.4) % Nucleat RBC Rel Count 0.0 (0.00-0.1) % Eos # (Auto) 0.14 (0-0.5) x10^3/uL Immature Gran # (Auto) 0.05 H (0.00-0.03) x10^3u/L Absolute Lymphs (auto) 2.58 (1.0-4.6) x10^3/uL Absolute Monos (auto) 0.72 (0.0-1.3) x10^3/uL Absolute Nucleated RBC 0.00 (0.00-0.01) x10^3u/L Lymphocytes % 24.3 (24.0-44.0) % Monocytes % 6.8 (0.0-12.0) % Eosinophils % 1.3 (0.00-5.0) % Basophils % 0.7 (0.0-0.4) % Absolute Granulocytes 7.04 H (1.4-6.9) x10^3/uL Basophils # 0.07 (0-0.4) x10^3/uL PT (9.4-12.5) SECONDS INR (0.8-3.0) APTT (25.1-36.5) SECONDS D-Dimer (0.0-0.50) mg/L Sodium 141 (137-145) mmol/L Potassium 3.6 (3.5-5.1) mmol/L Chloride 101 (98-107) mmol/L Carbon Dioxide 29 (22-30) mmol/L Anion Gap 13.7 (5-15) MEQ/L BUN 16 (7-17) mg/dL Creatinine 0.90 (0.52-1.04) mg/dL Estimated GFR > 60.0 ML/MIN Glucose 221 H (74-106) mg/dL Calcium 9.1 (8.4-10.2) mg/dL Magnesium 1.8 (1.6-2.3) mg/dL Total Bilirubin 0.50 (0.2-1.3) mg/dL AST 29 (14-36) U/L ALT 31 (0-35) U/L Alkaline Phosphatase 97 (38-126) U/L Troponin I (0.000-0.034) ng/mL Serum Total Protein 7.5 (6.3-8.2) g/dL Albumin 4.1 (3.5-5.0) g/dL - Progress Progress: improved Progress Note: 01/17/23 21:23 Nursing note and vital signs reviewed No food or housing insecurities noted ASA 324mg po 1mg IV Ativan w improvement in anxiety Heart Score 3 Wells Criteria for PE 01/17/23 21:32 Pain greatly improved before discharge Counseled pt/family regarding: lab results, diagnosis, need for follow-up, rad results Medical Desision Making - Independent Historian Additional History obtained from: Child - Social Determinants of Health Pt's dx & treatment plan are significantly limited by SDOH: Unemployed - Diagnostic Testing Diagnostic test were ordered, analyzed, and reviewed by me: Yes Radiological Interpretation: Interpreted by me, Discussed w/ radiologist - Risk of complications Low Risk: Low risk of morbidity from additional dx testing or treatment - Departure Departure Disposition: Home Clinical Impression: Chest pain Condition: Stable Critical Care Time: No Referrals: CAESAR GRAHAM NP [Primary Care Provider] - Follow up/PCP as directed Instructions: Chest Pain (DC) Additional Instructions: Follow up with your family MD in 1-2 days Return to ER for worsening pain or temperature greater than 100.5
[2023-01-17] MEDS ORDERED: Ativan 2 MG/1 ML VIAL IV ONE (18:41)
[2023-01-17 18:49] LABS: Absolute Neutrophil Ct (ANC) 7.04 x10^3/uL (1.4-6.9); BASOPHIL % 0.7 % (0.0-0.4); Basophil (Absolute #) 0.07 x10^3/uL (0-0.4); Eosinophil % 1.3 % (0.00-5.0); Eosinophil (Absolute #) 0.14 x10^3/uL (0-0.5); Hematocrit 42.7 % (35-47); IMMATURE GRAN # 0.05 x10^3u/L (0.00-0.03); IMMATURE GRAN % 0.5 % (0.00-0.4); Lymphocyte (Absolute #) 2.58 x10^3/uL (1.0-4.6); Lymphocytes % 24.3 % (24.0-44.0); Mean Cell Volume 95.3 fL (78-100); Mean Corpuscular Hemoglobin 31.3 pg (26-32); Mean Corpuscular Hgb Concent. 32.8 g/dL (32-36); Mean Platelet Volume 10.6 fL (7.5-11.0); Monocyte (Absolute #) 0.72 x10^3/uL (0.0-1.3); Monocytes % 6.8 % (0.0-12.0); Neutrophil % 66.4 % (36.0-66.0); Platelet Count 309 x10^3/uL (150-450); Red Blood Count 4.48 x10^6/uL (4.1-5.4); Red Cell Distribution Width 12.7 % (11.5-14.0); White Blood Count 10.6 x10^3/uL (4.0-10.5)
[2023-01-17] MEDS ORDERED: Ativan 2 MG/1 ML VIAL ONE (18:50)
[2023-01-17 19:01] LABS: ALBUMIN 4.1 g/dL (3.5-5.0); ALKALINE PHOSPHATASE 97 U/L (38-126); ANION GAP 13.7 MEQ/L (5-15); BLOOD UREA NITROGEN 16 mg/dL (7-17); CHLORIDE 101 mmol/L (98-107); Calcium 9.1 mg/dL (8.4-10.2); Carbon Dioxide 29 mmol/L (22-30); EST GLOMERULAR FILTRATION RATE > 60.0 ML/MIN; Glucose 221 mg/dL (74-106); MAGNESIUM 1.8 mg/dL (1.6-2.3); Potassium 3.6 mmol/L (3.5-5.1); SGOT/AST 29 U/L (14-36); SGPT/ALT 31 U/L (0-35); SODIUM 141 mmol/L (137-145); Total Protein 7.5 g/dL (6.3-8.2)
[2023-01-17 19:10] LABS: D-DIMER QUANTITATIVE 0.56 mg/L (0.0-0.50); INR 0.93 (0.8-3.0); PROTIME 10.2 SECONDS (9.4-12.5); PTT 23.3 SECONDS (25.1-36.5)
[2023-01-17 21:55] VITALS: BP 146/102; PULSE 102
--- NOTE | 2023-01-18 08:43 | XRAY ---
Indication: Chest pain. Dyspnea. Elevated d-dimer. Multiple contiguous axial images obtained through the chest using 100 cc Isovue 370 contrast and PE protocol. Comparison: None Good opacification of the pulmonary arteries to include the lobar and segmental branches. No pulmonary embolus. Heart not enlarged. Aorta is normal in course and caliber. A few small left infrahilar calcified nodes. No pathologic mediastinal/hilar lymphadenopathy. Lungs demonstrates minimal left apical subpleural cystic changes and small left posterior gutter calcified granuloma. No suspicious pulmonary mass/nodule, infiltrate, effusion, or pneumothorax. Bony thorax intact with minimal degenerative changes throughout the spine, small multilevel Schmorl nodes, and remote right 6 rib fracture. Limited upper abdomen demonstrates fatty liver and tiny splenic calcified granulomas. Impression: 1. Negative pulmonary embolus. No acute cardiopulmonary abnormalities. 2. Incidental fatty liver, chronic bony findings, and old granulomatous disease.
--- NOTE | 2023-01-18 08:43 | XRAY ---
Indication: Chest pain one month. Comparison: January 06, 2023 Portable chest remains inflated and clear. Heart not enlarged. No new/acute findings.
== END 2023-01-17 21:50 | disposition home or self-care (01) ==
LOC: ED 18:13
DX: R07.9 Chest pain, unspecified (principal); R11.0 Nausea; R06.00 Dyspnea, unspecified; I10 Essential (primary) hypertension; E78.5 Hyperlipidemia, unspecified; Z79.899 Other long term (current) drug therapy; Z72.0 Tobacco use; Z56.0 Unemployment, unspecified
CPT/HCPCS: 36000; 36415; 71045; 71260; 80053; 83735; 84484; 85025; 85379; 85610; 85730; 93005; 96374; 99284; J2060; A9270-GY